=== PATIENT | male | born 1955 | race Two or more races ===

== ENCOUNTER 2017-05-03 06:53 | Emergency (ER) | payer OTHER ==
[~2017-05-03] VITALS: Ht 157.5 cm; Wt 75.0 kg
[2017-05-03 06:56] VITALS: BP 164/82
== END 2017-05-03 08:02 | disposition home or self-care (01) ==
LOC: ED 07:40
DX: S80.02XA Contusion of left knee, initial encounter (principal); E11.9 Type 2 diabetes mellitus without complications; Z85.028 Personal history of other malignant neoplasm of stomach; V09.9XXA Pedestrian injured in unspecified transport accident, initial encounter; Y93.89 Activity, other specified; Y92.89 Other specified places as the place of occurrence of the external cause; Y99.9 Unspecified external cause status
CPT/HCPCS: 99281